=== PATIENT | male | born 1950 | race African-American/Black ===

== ENCOUNTER 2018-11-06 20:37 | Emergency (ER) | payer OTHER ==
[~2018-11-06] VITALS: Ht 188 cm; Wt 129.0 kg
[2018-11-06 21:24] VITALS: BP 163/85
== END 2018-11-06 23:26 | disposition left against medical advice (07) ==
LOC: ER 20:37
DX: R05 Cough (principal); Z53.21 Procedure and treatment not carried out due to patient leaving prior to being seen by health care provider